=== PATIENT | male | born 1995 | race Caucasian/White ===

== ENCOUNTER 2021-07-10 13:43 | Emergency (ER) | payer OTHER ==
[2021-07-10 14:04] VITALS: BP 124/69; PULSE 74; TEMP 97.9; BMI 28.8
== END 2021-07-10 17:44 | disposition home or self-care (01) ==
LOC: JERFT 13:43
DX: S09.90XA Unspecified injury of head, initial encounter (principal); M79.10 Myalgia, unspecified site; V86.11XA Passenger of ambulance or fire engine injured in traffic accident, initial encounter
CPT/HCPCS: 70450-TC; 72125-TC; 99285-25